=== PATIENT | male | born 1930 | race Caucasian/White ===

== ENCOUNTER 2018-11-16 13:07 | Emergency (ER) | payer OTHER ==
[2018-11-16 13:21] VITALS: BP 144/90; TEMP 98.4; BMI 27.8
--- NOTE | 2018-11-16 13:31 | ED.PDOC ---
General ED Provider: Dr. 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 Now tender and swollen with marked ecchymosis present. Time Seen by Physician: 13:28 Mode of Arrival: Walk-In Information Source: Patient Primary Care Provider: HELADIO GREENBERG Nursing and Triage Documentation Reviewed and Agree: Yes Does patient meet sepsis criteria?: No System Inflammatory Response Syndrome: Not Applicable Sepsis Protocol: For patient's 13 years and over: Temp is 96.8 and below OR 101 and greater Pulse >90 BPM Resp >20/minute Acutely Altered Mental Status Are patient's symptoms suggestive of a new infection, such as: -Pneumonia -Skin, Soft Tissue -Endocarditis -UTI -Bone, Joint Infection -Implantable Device -Acute Abdominal Infection -Wound Infection -Meningitis -Blood Stream Catheter Infection -Unknown Review of Systems - Review Of Systems Constitutional: Reports: No symptoms Respiratory: Reports: No symptoms Cardiac: Reports: No symptoms Musculoskeletal: Reports: Joint pain (R wrist), Joint swelling (right wrist) Skin: Reports: Bruising (R wrist and distal ulnar aspect of R forearm swollen and bruised) All Other Systems: Reviewed and Negative Past Medical History - Past Medical History Endocrine: Reports: None Cardiovascular: Reports: None Respiratory: Reports: None Hematological: Reports: None Gastrointestinal: Reports: None Genitourinary: Reports: None Neuro/Psych: Reports: None Musculoskeletal: Reports: None Cancer: Reports: None - Surgical History General Surgical History: Reports: Unknown - Family History Family History: Reports: Unknown - Social History Smoking Status: Never smoker Hx Substance Use: No Alcohol Screening: None - Immunizations Tetanus Shot up to Date: No Physical Exam - Physical Exam Appearance: Well-appearing Ill-appearing: None Pain Distress: Mild Neck: Supple Respiratory: Airway patent, Respirations nonlabored Cardiovascular: RRR, Pulses normal Musculoskeletal: ROM intact (except limited R forearm; pronation/supination limited secondary to discomfort) Neurological: Sensation intact, Motor intact, Alert, Oriented Psychiatric: Affect appropriate, Mood appropriate Critical Care Note - Critical Care Note Total Time (mins): 15 Course - Course Orders, Labs, Meds: Orders Category Date Time Status FOREARM, RIGHT 2 VIEWS Stat RADS 11/16/18 13:32 Ordered WRIST, RIGHT 3 VIEWS Stat RADS 11/16/18 13:32 Ordered Vital Signs: Temp Pulse Resp BP Pulse Ox 11/16/18 13:07 98.4 F 87 18 144/90 H 95 Departure - Departure Time of Disposition: 13:39 Disposition: HOME SELF-CARE Discharge Problem: Fracture, ulna, shaft Qualifiers: Encounter type: initial encounter Fracture type: closed Fracture morphology: oblique Fracture alignment: nondisplaced Laterality: right Qualified Code(s): S52.234A - Nondisplaced oblique fracture of shaft of right ulna, initial encounter for closed fracture Discharge Problem: (Ruled Out): Short of breath on exertion Instructions: Shortness of Breath (ED) Condition: Good Pt referred to PMD for follow-up: Yes (Follow up with primary care; call for appointment) IPMP verified?: No (N/A) Additional Instructions: Use sling, avoid gripping with Right hand; follow up with primary care provider. He may want to refer you to a bone doctor or he may just follow the healing process. Surgical repair is not likely to be needed. Tylenol and/or Ibuprofen for discomfort. Allergies/Adverse Reactions: Allergies No Known Allergies Allergy (Verified 11/16/18 13:24) Home Medications: Ambulatory Orders C,E,Zinc,Copper 24/Om3/Lut/Nate [Ocuvite Softgel] 1 each PO DAILY 03/05/13 Amlodipine Besylate [Norvasc] 5 mg PO DAILY 11/16/18 Disposition Discussed With: Patient
--- NOTE | 2018-11-16 13:58 | DI ---
EXAM: RIGHT WRIST THREE VIEWS HISTORY: Trauma FINDINGS: Bones are severely demineralized. This limits the exam. The wrist proper has no well-def ined acute fracture line or joint dislocation. 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 IMPRESSION: No definite acute fracture of the wrist proper. There is a fracture of the ulnar diaphys is. See same day forearm series report.
--- NOTE | 2018-11-16 14:00 | DI ---
EXAM: RIGHT FOREARM, 2 VIEWS HISTORY: Trauma FINDINGS: Bones are demineralized. There is an oblique fracture of the distal third aspect of the u lnar diaphysis with minimal displacement. No other fractures are seen. Joints remain intact. IMPRESSION: 1. Ulnar fracture.
== END 2018-11-16 14:19 | disposition home or self-care (01) ==
LOC: ED 13:07
DX: S52.234A Nondisplaced oblique fracture of shaft of right ulna, initial encounter for closed fracture (principal); W22.8XXA Striking against or struck by other objects, initial encounter
CPT/HCPCS: 99283